=== PATIENT | female | born 1945 ===

== ENCOUNTER 2017-08-13 07:43 | Day surgery (SDC) | payer MEDICARE, BC ==
[2017-08-12 08:32] VITALS: BMI 26.6
[2017-08-13] MEDS ORDERED: Propofol 10 mg/ml Inj (20 ML) ONE (08:46)
[2017-08-13] MEDS ORDERED: cefOXitin IV 1 gm in Dextrose 1 GM/50 ML BAG IVPB ONE (09:15)
[2017-08-13] MEDS ORDERED: HYDROmorphone 0.5 mg/0.5 ml ISec IVP PRN ×2 (10:17→10:40)
--- NOTE | 2017-08-13 10:57 | PCM.SURG1 ---
Surgeon's Initial Post Op Note - Surgeon's Notes Surgeon: dr lao Assistant Fitness Manager: none Type of Anesthesia: General LMA Anesthesia Administered By: dr couch Pre-Operative Diagnosis: 72 with pmb Operative Findings: see the op reort Post-Operative Diagnosis: same Operation Performed: myasure d&c,hysyerscopy Specimen/Specimens Removed: ecc. emc. r/o polyp Estimated Blood Loss: EBL {In ML}: 20 Blood Products Given: N/A Drains Used: No Drains Post-Op Condition: Good Date of Surgery/Procedure: 08/13/17 Time of Surgery/Procedure: 11:00
[2017-08-13 11:16] VITALS: O2SAT 100
[2017-08-13 12:04] VITALS: BP 138/78; PULSE 63; RESP 18; TEMP 97
--- NOTE | 2017-08-14 10:06 | OP ---
PROCEDURE DATE: 08/13/2017 PREOPERATIVE DIAGNOSIS: This is 72-year-old 1, para 1 with postmenopausal bleeding, rule out endometrial polyp. POSTOPERATIVE DIAGNOSIS: This is 72-year-old 1, para 1 with postmenopausal bleeding, rule out endometrial polyp. SURGEON: Eyal Curtis MD HUMAN RESOURCES SUPERVISOR SURGEON: None. TYPE OF ANESTHESIA: General anesthesia. ANESTHESIOLOGIST: Becky Navarrete MD COMPLICATION: None. PROCEDURE: MyoSure, D and C, cystoscopy. ESTIMATED BLOOD LOSS: 20 mL. DEFICIT: 100 mL. DESCRIPTION OF PROCEDURE: The patient was brought to the operating room, placed on the table, where general anesthesia was given. Once the anesthesia was given, the patient was prepped and draped in the normal sterile fashion. Uterus examination found uterus to be prolapsed grade 2, bladder prolapsed to grade 1. Anterior lip of cervix was grasped with a tenaculum. Gentle dilatation of the cervix was done. It was hard to uterus. The ultrasound was provided and ultrasound guided dilatation of cervix was done and the uterine should not perforate after that, dilatation was done. found to be a polyp on the posterior wall of the uterus. MyoSure was used to remove the polyp and it was sent to the pathology. Uterus was very small. Sharp curettage of all the velazquez of the uterus done. ECC and EMC were sent to pathology. The tenaculum was taken out. The patient tolerated the procedure well. Lap, sponge, and instrument counts were correct x2. Eyal Curtis MD
== END 2017-08-13 12:07 | disposition home or self-care (01) ==
LOC: C.SDS 07:43
PROVIDERS: ATTEND Obstetrics & Gynecology
DX: N95.0 Postmenopausal bleeding (principal); N84.0 Polyp of corpus uteri; N81.2 Incomplete uterovaginal prolapse
CPT/HCPCS: 58558; 88305; J0694; J2405; J2704; J3010